=== PATIENT | female | born 1980 | race Caucasian/White ===

== ENCOUNTER 2019-02-05 09:59 | Emergency (ER) | payer SELFPAY | END 2019-02-05 11:40 | disposition home or self-care (01) | LOC: FTE 09:59 | DX: S16.1XXA Strain of muscle, fascia and tendon at neck level, initial encounter (principal); V49.40XA Driver injured in collision with unspecified motor vehicles in traffic accident, initial encounter | CPT/HCPCS: 72040; 72072; 81025; 99283-25 ==